=== PATIENT | male | born 1960 | race Caucasian/White ===

== ENCOUNTER 2024-12-16 13:48 | Inpatient (IN) | payer MEDICAID, SELFPAY ==
[2024-12-16] VITALS (9 sets, daily range): BP systolic 103–150; BP diastolic 53–78; PULSE 93–136; RESP 16–100; TEMP 37.9–39.3; O2SAT 97–100; BMI 25.7; BMI 25.6
--- NOTE | 2024-12-16 13:50 | PC.NURSE ---
BROUGHT IN BY AMBULANCE FROM [facility]. PT WAS OUTSIDE SMOKING AND STAFF FOUND PT IN WHEELCHAIR UNRESPONSIVE. STAFF MOVED DE TO GROUND AND PT WOKE UP. PT NORMALLY CONFUSED DUE TO DEMENTIA. UNABOOT WRAPS ON BOTH LOWER LEGS
--- NOTE | 2024-12-16 14:13 | EKG_ITS ---
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
--- NOTE | 2024-12-16 14:16 | XR_ITS ---
Examination: AP chest single view Technique one AP portable upright chest single view Date and time: December 16, 2024 1532 hours Comparison 04/02/2020 INDICATIONS: Sepsis protocol. FINDINGS: Fairly diffuse pneumonia in the left lung with left pleural disease Right lung clear Mild enlargement left ventricle Prominent osteopenia IMPRESSION: Significant left lung pneumonia
--- NOTE | 2024-12-16 14:22 | EDNOTE_ITS ---
ED Syncope RME/HPI General Chief Complaint: Syncope / Near Syncope Stated Complaint: POSSIBLE SYNCOPAL EPISODE Time Seen by Provider: 12/16/24 14:07 Arrival date/time: 12/16/24 13:48 RME / HPI RME / HPI narrative: 64-year-old male with a past medical history of diabetes, hypertension, seizures, hyperlipidemia, and dementia presents to the ED via EMS after he was [facility] at [facility] unconscious. custodial staff indicate he went out to have a cigarette in the patio. He had not been seen for a while and when staff went out to look for him he was found unresponsive and slumped over in his chair. They immediately moved him to the ground and he regained consciousness. He was sent here for further workup and evaluation. Related Data Home Medications ?Medication ?Instructions ?Recorded ?Confirmed aspirin 81 mg chewable tablet 81 mg PO QDAY ##0 05/03/20 carbamazepine 200 mg tablet 200 mg PO BID #0 tabs 06/1405/03/20 (Tegretol) divalproex 500 mg tablet,extended 1,000 mg PO QDAY #0 tabs 07/08/17 05/03/20 release 24 hr (Depakote ER) furosemide 20 mg tablet (Lasix) 20 mg PO QDAY #0 tabs 07/08/17 05/03/20 lisinopril 5 mg tablet 2.5 mg PO QDAY #0 tabs 07/0805/03/20 magnesium hydroxide 400 mg/5 mL 30 ml PO HSPRN PRN CON STIPATION #0 07/08/17 05/03/20 oral suspension (Milk of Magnesia) mL niacin 500 mg tablet 250 mg PO BID #0 tabs 05/03/20 simvastatin 20 mg tablet (Zocor) 40 mg PO HS #0 tabs 1 09/08/16 05/03/20 sitagliptin phosphate 50 mg tablet 50 mg PO QDAY #0 ta bs 07/08/17 05/03/20 (Januvia) bisacodyl 10 mg rectal suppository 10 mg NM QDAY PRN C onstipation 04/02/20 05/03/20 (Dulcolax (bisacodyl)) melatonin 3 mg capsule 3 mg PO HS 04/02/20 05/03/20 metformin 1,000 mg tablet 1,000 mg PO BID 04/02/20 (Glucophage) insulin glargine 100 unit/mL 45 unit subcut BID 05/03/20 subcutaneous cartridge multivitamin,[id number]-[id number]-Gy-[id number]-min 1 tab PO DAILY 05/03/20 05/03/20 Allergies Allergy/AdvReac Type Severity Reaction Status Date / Time bee venom protein (honey bee) Allergy Severe Hives Verified 12/16/24 14:01 Review of Systems Review of Systems Systems Reviewed: All systems reviewed, normal except as documented Past Medical History Past Medical History NEUROLOGIC: Positive Neurological Disorders and Traumatic Brain Injury CARDIAC: Positive Cardiac Disorders, Peripheral Vascular Disease and Hypertension; Negative Congestive Heart Failure RESPIRATORY: Negative Chronic Obstructive Pulmonary Disease (COPD) GASTROINTESTINAL: Negative Gastrointestinal Disorders GENITOURINARY: Negative Genitourinary Disorders or Renal Disease MUSCULOSKELETAL: Positive Musculoskeletal Disorders ENDOCRINE: Positive Endocrine Disorders and Diabetes Mellitus Type 2; Negative Diabetes Mellitus Type 1 PSYCHO/SOCIAL: Positive Recreational Drug Use, Bipolar Disorder and Anxiety Social History SMOKING STATUS: Current every day smoker ED Exam Narrative Physical exam: Alert 64-year-old male, no acute distress. Tachycardic and febrile at 102.7 degrees. Lungs are diminished at the bases with an active moist sounding cough. Bowel sounds are present, abdomen is soft and nontender. Contractures noted to his upper and lower extremities. Bilateral lower extremities wrapped in Unna boots/Coban. Right knee reveals erythema, warmth with multiple abrasions noted. Left knee without erythema or warmth noted. Course Course Course Narrative: 64-year-old male with a past medical history of diabetes, hypertension, seizures, hyperlipidemia, and dementia presents to the ED via EMS after he was found at his [facility] unconscious. custodial staff indicate he went out to have a cigarette in the patio. He had not been seen for a while and when staff went out to look for him he was found unresponsive and slumped over in his chair. They immediately moved him to the ground and he regained consciousness. He was sent here for further workup and evaluation. Alert 64-year-old male, no acute distress. Tachycardic and febrile at 102.7 degrees. Lungs are diminished at the bases with an active moist sounding cough. Bowel sounds are present, abdomen is soft and nontender. Contractures noted to his upper and lower extremities. Bilateral lower extremities wrapped in Unna boots/Coban. Right knee reveals erythema, warmth with multiple abrasions noted. Left knee without erythema or warmth noted. Vital signs reveal a blood pressure of 150/78, pulse 136, respirations 16 and nonlabored, temperature 102.7, O2 sat 97% on room air. Labs reveal an elevated white count of 18.0, minimally low H&H, normal platelets, elevated ANC of 15.7, lactic elevated at 3.5, LDH normal at 148, troponin is less than 0.020. Procalcitonin is elevated at 0.51 normal coags. Chemistry panel reveals normal sodium, chloride, potassium, CO2 and gap. BUN is elevated at 38, creatinine elevated at 1.7 EGFR 45. Glucose is elevated at 168. Phosphorus low at 1.2, normal magnesium of 2.0, LFTs are normal. Urinalysis reveals clear yellow urine with a specific gravity of 1.014, 3+ protein, 3+ glucose, negative ketones, 1+ blood, negative nitrites and leukocyte esterase, 11 RBCs, 3 WBCs and no bacteria. EKG reveals sinus tachycardia at 143 with normal QT and mild ST and T wave abnormalities. XR chest FINDINGS: Fairly diffuse pneumonia in the left lung with left pleural disease. Right lung clear. Mild enlargement left ventricle. Prominent osteopenia. IMPRESSION: Significant left lung pneumonia Quality Measures Current suspected stage: sepsis Possible source: pulmonary and skin/soft tissue Blood cultures ordered: yes Antibiotic ordered: Yes Pertinent labs: 12/16/24 14:15 Lactic Acid 3.5 H mMol/L (0.4-2.0) Procalcitonin 0.51 H ng/ml (0.0-0.49) sepsis Orders Category Date Time Status Snowboard Designer STAT Care 12/16/24 14:13 Completed Continuous Pulse Oximetry STAT Care 12/16/24 14:13 Completed EKG (ED ONLY) *Do not use* NOW Care 12/16/24 14:13 Completed In and Out Catheter X1PRN Care 12/16/24 14:13 Completed Insert IV NOW Care 12/16/24 14:13 Completed NPO STAT Care 12/16/24 14:13 Active Strict Intake and Output Routine Care 12/16/24 14:13 Ordered EKG (ED Only) Stat Exams 12/16/24 14:13 Draft XR chest 1V SEPSIS PROTOCOL Stat Exams 12/16/24 14:16 Completed Arterial Blood Gas Stat Lab 12/16/24 16:26 Completed B-Type Natriuretic Peptide Stat Lab 12/16/24 14:15 Completed Blood Culture (Lab) Stat Lab 12/16/24 14:33 Received CBC Stat Lab 12/16/24 14:15 Completed Comprehensive Metabolic Panel Stat Lab 12/16/24 14:15 Completed LDH (Lactate Dehydrogenase) Stat Lab 12/16/24 14:15 Completed Lactate (Lactic Acid) Stat Lab 12/16/24 14:15 Results Lipase Stat Lab 12/16/24 14:15 Completed Magnesium Stat Lab 12/16/24 14:15 Completed Partial Thromboplastin Time Stat Lab 12/16/24 14:15 Completed Phosphorous Stat Lab 12/16/24 14:15 Completed Procalcitonin Stat Lab 12/16/24 14:15 Completed Prothrombin Time with INR Stat Lab 12/16/24 14:15 Completed Troponin I Stat Lab 12/16/24 14:15 Completed Urinalysis Stat Lab 12/16/24 15:21 Completed Urine Culture Stat Lab 12/16/24 15:21 Received Acetaminophen Supp [Tylenol Supp] Med 12/16/24 14:13 Active 650 mg NM Q8HR PRN Piper/Tazo 3.375 gm Premix [Zosyn] Med 12/16/24 22:00 Active 3.375 gm in 50 ml IV Q8HR Piper/Tazo 3.375 gm Premix [Zosyn] Med 12/16/24 14:30 Discontinued 3.375 gm in 50 ml IV X1 Sodium Chloride 0.9% 1000 ml [Ns] 1,776 ml Med 12/16/24 14:13 Discontinued IV 1,776 mls/hr Vancomycin Pharmacy to Dose Med 12/16/24 14:20 Active 1 each IV QDAY PRN Vancomycin/Ns 1 gm Ivpb 200 ml Med 12/16/24 14:30 Discontinued IV X1 Oxygen Delivery NOW RT 12/16/24 14:13 Active Vital Signs Vital signs: Vital Signs Pulse Rate 136 H 12/16/24 13:50 Respiratory Rate 16 12/16/24 13:50 Blood Pressure 150/78 H 12/16/24 13:50 Pulse Oximetry (%) 97 12/16/24 13:50 Oxygen Delivery Method Room Air 12/16/24 13:50 Syncope MDM Narrative MDM Narrative:: 64-year-old male with a past medical history of diabetes, hypertension, seizures, hyperlipidemia, and dementia presents to the ED via EMS after he was [facility] at his [facility] unconscious. custodial staff indicate he went out to have a cigarette in the patio. He had not been seen for a while and when staff went out to look for him he was found unresponsive and slumped over in his chair. They immediately moved him to the ground and he regained consciousness. He was sent here for further workup and evaluation. Alert 64-year-old male, no acute distress. Tachycardic and febrile at 102.7 degrees. Lungs are diminished at the bases with an active moist sounding cough. Bowel sounds are present, abdomen is soft and nontender. Contractures noted to his upper and lower extremities. Bilateral lower extremities wrapped in Unna boots/Coban. Right knee reveals erythema, warmth with multiple abrasions noted. Left knee without erythema or warmth noted. Vital signs reveal a blood pressure of 150/78, pulse 136, respirations 16 and nonlabored, temperature 102.7, O2 sat 97% on room air. Labs reveal an elevated white count of 18.0, minimally low H&H, normal platelets, elevated ANC of 15.7, lactic elevated at 3.5, LDH normal at 148, troponin is less than 0.020. Procalcitonin is elevated at 0.51 normal coags. Chemistry panel reveals normal sodium, chloride, potassium, CO2 and gap. BUN is elevated at 38, creatinine elevated at 1.7 EGFR 45. Glucose is elevated at 168. Phosphorus low at 1.2, normal magnesium of 2.0, LFTs are normal. Urinalysis reveals clear yellow urine with a specific gravity of 1.014, 3+ protein, 3+ glucose, negative ketones, 1+ blood, negative nitrites and leukocyte esterase, 11 RBCs, 3 WBCs and no bacteria. EKG reveals sinus tachycardia at 143 with normal QT and mild ST and T wave abnormalities. XR chest FINDINGS: Fairly diffuse pneumonia in the left lung with left pleural disease. Right lung clear. Mild enlargement left ventricle. Prominent osteopenia. IMPRESSION: Significant left lung pneumonia Patient data External records reviewed:: EMS form and Intermediate records Clinical information provided by:: none Social determinants that could affect healthcare access:: none Patient has the following chronic illnesses:: Type 2 diabetes mellitus, TBI, peripheral vascular disease, hypertension, hyperlipidemia, bipolar disorder How is presenting disease/condition affected by chronic disease/condition?: uneffected by Evaluation data The following diagnostics were reviewed and interpreted by me:: lab results, radiology exam(s) and EKG tracing(s) Lab and/or radiology exams considered but not ordered:: N/A Interpretation Summary: Labs reveal an elevated white count of 18.0, minimally low H&H, normal platelets, elevated ANC of 15.7, lactic elevated at 3.5, LDH normal at 148, troponin is less than 0.020. Procalcitonin is elevated at 0.51 normal coags. Chemistry panel reveals normal sodium, chloride, potassium, CO2 and gap. BUN is elevated at 38, creatinine elevated at 1.7 EGFR 45. Glucose is elevated at 168. Phosphorus low at 1.2, normal magnesium of 2.0, LFTs are normal. Urinalysis reveals clear yellow urine with a specific gravity of 1.014, 3+ protein, 3+ glucose, negative ketones, 1+ blood, negative nitrites and leukocyte esterase, 11 RBCs, 3 WBCs and no bacteria. EKG reveals sinus tachycardia at 143 with normal QT and mild ST and T wave abnormalities. XR chest FINDINGS: Fairly diffuse pneumonia in the left lung with left pleural disease. Right lung clear. Mild enlargement left ventricle. Prominent osteopenia. IMPRESSION: Significant left lung pneumonia Medications / Prescriptions Medications or Prescriptions considered but not ordered:: N/A Medication administrations:: Medication Administration History Acetaminophen (Acetaminophen Supp 650 Mg Supp) 650 mg NM Q8HR PRN PRN Reason: Fever > 100.4 Stop: 01/15/25 14:12 Last Admin: 12/16/24 15:09 Dose: 650 mg Documented By: GM Piperacillin/Tazobactam/Dextrose (Zosyn) 3.375 gm in 50 mls @ 12.5 mls/hr IV Q8HR [facility]; Protocol Stop: 12/23/24 21:59 Pharmacy Consult (Vancomycin Pharmacy To Dose 1 Each Each) 1 each IV QDAY PRN PRN Reason: CONSULT Stop: 01/15/25 14:19 Discontinued Medications Sodium Chloride (Ns) 1,776 mls @ 1,776 mls/hr 30 ml/kg infuse over 60 min (1776 ml) IV .Q1H ONE Stop: 12/16/24 15:12 Last Infusion: 12/16/24 16:20 Dose: Infused Documented By: Admin: 12/16/24 15:04 Dose: 1,776 mls/hr Documented By: GM Piperacillin/Tazobactam/Dextrose (Zosyn) 3.375 gm in 50 mls @ 100 mls/hr IV X1 ONE Stop: 12/16/24 14:59 Last Infusion: 12/16/24 15:40 Dose: Infused Documented By: Admin: 12/16/24 15:09 Dose: 100 mls/hr Documented By: GM Vancomycin/Sodium Chloride (Vancomycin/Ns 1 Gm Ivpb) 200 mls @ 120 mls/hr IV X1 ONE Stop: 12/16/24 16:09 Last Admin: 12/16/24 16:16 Dose: 120 mls/hr Documented By: ALONDRA Acetaminophen 650MG NM, Zosyn 3.375 g IV, vancomycin 1 g, sodium chloride 1776 mL (sepsis fluids) Consultations Consultation(s) initiated? (list below): Yes Consultation #1 (Physician, Specialty, Details): Dr. Cantu, Resident accepts for admission. Diagnosis Syncope Differential Diagnosis: syncope due to orthostatic hypotension, vasovagal syncope, complete atrioventricular block, dehydration and other (Sepsis,) Most likely diagnosis given after review of the tests above:: Sepsis secondary to Left sided Pneumonia and Right knee cellulitis. Admission Indicated Admission indicated?: indicated Explain why admission is indicated or not indicated:: Sepsis Admission Request Was there a request for admission?: Yes Admission Attestation Admission request attestation: Discussed case with Dr. Cantu from Hospitalist service regarding admission. Discussed patients ED course, exam findings, labs, and radiology results. The Hospitalist agrees to accept the patient for admission. Disposition Plan Disposition Plan: Admit Discharge Plan Plan Patient Disposition: Admit Acute Care w/in Hospital Discharge Disposition comment: Stable Prescriptions/Referrals Prescriptions/Med Rec: No Action carbamazepine [Tegretol] 200 MG tablet 200 mg PO BID Qty: 0 magnesium hydroxide [Milk of Magnesia] 30 ML/CUP suspension 30 ml PO HSPRN PRN (Reason: CONSTIPATION) Qty: 0 simvastatin [Zocor] 20 MG tablet 40 mg PO HS Qty: 0 divalproex [Depakote ER] 500 MG tablet extended release 24 hr 1,000 mg PO QDAY Qty: 0 niacin 500 MG tablet 250 mg PO BID Qty: 0 aspirin 81 MG tablet,chewable 81 mg PO QDAY Qty: 0 lisinopril 5 MG tablet 2.5 mg PO QDAY Qty: 0 furosemide [Lasix] 20 MG tablet 20 mg PO QDAY Qty: 0 Januvia 50 MG tablet 50 mg PO QDAY Qty: 0 Multivitamin And Mineral Tablet 1 tab PO DAILY Lantus U-100 Insulin 100 unit/mL Cartridge 45 unit SUBCUT BID bisacodyl [Dulcolax (bisacodyl)] 10 mg Suppository 10 mg NM QDAY PRN (Reason: Constipation) metformin [Glucophage] 1,000 mg Tablet 1,000 mg PO BID melatonin 3 mg Capsule 3 mg PO HS Referrals: Arian([facility])Eloy MD [Primary Care Provider] - In 1 week Problem List Clinical Impression: Sepsis, Cellulitis, Pneumonia, Syncope and collapse Patient/Caregiver Discharge Instructions Print Language: Maori Stand Alone Forms: Nelli Award Info., Patient Portal Info Letter PA/BANQUET LEAD Supervising Physician PA/BANQUET LEAD Supervising Physician: Dr. Singleton
[2024-12-16 14:38] LABS: Lactate (Lactic Acid) 3.5 mMol/L (0.4-2.0)
[2024-12-16 14:39] LABS: Basophils % (Auto) 0 % (0-2.5); Eosinophils % (Auto) 0 % (0-10); Hematocrit 36.4 % (41.0-53.0); Hemoglobin 12.6 g/dL (13.5-16.0); Immature Granulocytes % (Auto) 0 % (0-0); Immature Granulocytes Auto 0.08 Thou/mm3 (0.00-0.00); Lymphocytes # (Auto) 0.7 Thou/mm3 (1.0-4.8); Lymphocytes % (Auto) 4 % (10-50); Mean Corpuscular HGB Conc 34.6 g/dl (31.0-37.0); Mean Corpuscular Hemoglobin 31.4 pg (25.0-35.0); Mean Corpuscular Volume 91 fL (80-100); Monocytes # (Auto) 1.5 Thou/mm3 (0.0-0.8); Monocytes % (Auto) 8 % (0-12); Neutrophils # (Auto) 15.7 Thou/mm3 (1.8-7.7); Neutrophils % (Auto) 87 % (37-80); Nucleated Red Blood Cell % 0 /100 WBC (0); Platelet Count 270 Thou/mm3 (140-440); RDW Standard Deviation 45.5 fL (35.1-43.9); Red Blood Count 4.01 Miln/mm3 (4.50-5.90)
[2024-12-16 15:04] LABS: Alanine Aminotransferase 13 U/L (10-49); Albumin, Serum 4.1 gm/dL (3.4-4.8); Albumin/Globulin Ratio 1.1 (1.2-2.2); Alkaline Phosphatase 62 U/L (46-116); Anion Gap 12 (7-16); Aspartate Amino Transferase 15 U/L (0-34); BUN/Creatinine Ratio 22 Ratio (12-20); Bilirubin,Total 0.2 mg/dL (0.3-1.2); Blood Urea Nitrogen 38 mg/dL (9-23); Calcium 8.9 mg/dL (8.3-10.6); Calcium (Corrected) 8.9 mg/dL (8.5-10.1); Carbon Dioxide 26.4 mMol/L (20.0-31.0); Chloride 103 mMol/L (98-107); Creatinine (Component) 1.7 mg/dL (0.6-1.3); Estimated Creatinine Clearance 37.2 mL/min (>60); Globulin 3.7 gm/dL (2.3-3.5); Glucose 168 mg/dL (74-106); LDH (Lactate Dehydrogenase) 148 U/L (120-246); Lipase 78 U/L (12-53); Osmolality,Calculated 294 (275-295); Phosphorous 1.2 mg/dL (2.4-5.1); Potassium 4.8 mMol/L (3.4-5.1); Procalcitonin 0.51 ng/ml (0.0-0.49); Sodium 141 mMol/L (136-145); Total Protein 7.8 gm/dL (5.7-8.2); Troponin I < 0.020 ng/mL (0.0-0.045); eGFR 45 See Note
[2024-12-16] MEDS: SODIUM CHLORIDE 0.9% 1000 ML 1,776 ML 1776 ML IV (15:04)
[2024-12-16] MEDS: PIPER/TAZO 3.375 GM PREMIX 3.375 GM/50 ML BAG IV ×2 (15:09→21:44)
[2024-12-16] MEDS: ACETAMINOPHEN SUPP 650 MG SUPP PR (15:09)
[2024-12-16 15:11] LABS: B-Type Natriuretic Peptide 66 pg/mL (0-100)
--- NOTE | 2024-12-16 15:15 | PC.NURSE ---
PT VOIDED SELF; PT GIVEN PERINEAL CARE WITH WARM BATH CLOTHS AND PLACED IN NEW CLEAN BRIEFS AT THIS TIME.
[2024-12-16 15:22] LABS: INR 0.9 (0.9-1.3); Prothrombin Time 10.2 Seconds (9.0-12.2)
[2024-12-16 15:40] LABS: Collection Type, Urine Clean Catch; Squamous Epithelial Cell,Urine 0 /hpf (0-5)
[2024-12-16 15:47] LABS: Bilirubin,Urine Negative (Negative); Blood,Urine 1+ (Negative); Clarity,Urine Clear (Clear/Hazy); Color,Urine Yellow (Lt Yel-Yel); Glucose, Urine 3+ (Negative); Hyaline Casts,Urine < 1 /hpf (0-1); Ketones,Urine Negative (Negative); Leukocyte Esterase,Urine Negative (Negative); Nitrite,Urine Negative (Negative); Protein,Urine 3+ (Neg - Trace); RBC,Urine 11 /hpf (0-3); Specific Gravity,Urine 1.014 (1.001-1.035); Urobilinogen,Urine Negative mg/dL (0.0-1.0); WBC,Urine 3 /hpf (0-5)
--- NOTE | 2024-12-16 16:07 | PC.CC ---
Patient is a 64 year-old male who presents to the hospital for syncopal episode. ASW, Chante made face to face contact with patient introduced self, role, and reason for visit. Patient presents as alert and oriented to self only. Patient confirmed his sisters name on demographics. ASW attempted to make telephone contact with sister, Timi Hdez to complete initial assessment but she did not answer. ASW made telephone contact with Kate at [facility] to complete assessment. Kate reports patient ambulates with a wheelchair and is moderate assist with ADLs. Patient does not require oxygen and is not a dialysis patient. Patient receives primary care with Eloy Rodriguez and prescription medication is provided at the SNF. Upon discharge patient will be returning back to [facility]. medical services assistant to follow up with any discharge needs.
[2024-12-16] MEDS: VANCOMYCIN/NS 1 GM IVPB 200 ML IV (16:16)
[2024-12-16 16:30] LABS: Base Excess -2 (-3-3); HCO3 22 mEq/L (20-26); Inspired Oxygen, FIO2 21 %; O2 Saturation 98 % (91-98); PCO2 35 mmHg (32.0-48.0); PO2 82 mmHg (83-108); pH, Arterial 7.41 (7.35-7.45)
[2024-12-16 16:33] LABS: Allen Test Not Performed; Puncture Site Arterial Line
[2024-12-16 17:33] LABS: Reflex Lactate? Y
--- NOTE | 2024-12-16 17:54 | ESHP_ITS ---
<Statement entered by Alyx Garcia MD - 12/17/24 13:37> I agree with plan and examination findings on this note , I have personally seen and examined patient. Labs and imaging reviewed. Alyx Garcia PGY3 Documentation for date of: 12/16/24 HPI History of Present Illness History of present illness: Due to patient's history of traumatic brain injury patient is unable to give full history. Although patient is alert and only knows his full name does not know any other information about himself. Patient is not somnolent nor disoriented Mr. Vasquez is 64-year-old male with past medical history significant for hypertension, type 2 diabetes, hyperlipidemia and history of traumatic brain injury presented to the ED by ambulance from [facility] after being found somnolent and unconscious in his wheelchair as per chart reviewing. Patient had then regained consciousness and was alert at his baseline upon arrival to the ED. Patient denies any chest pain palpitations dizziness or shortness of breath patient also denies any abdominal pain, melena, hematochezia or hematemesis. Patient also denies any dysuria or urinary urgency. Pt states he has had a cough for couple days but cannot confirm if he had a fever, pt denies any night sweats or chills. ED course In the ED initial vitals were 150/78, pulse was 136, temperature 102.7, patient was COVID, influenza A and B negative. Patient was saturating on room air does not require any supplemental oxygen Labs were significant for WBC 18.0, hemoglobin 12.6, hematocrit 36.4, BUN 38, creatinine 1.7, GFR 45, glucose 168, phosphorus 1.2 Lactic dehydrogenase 148, lipase 78, Pro-Donta could 0.51 Lactic acid 3.5 --> 2.0 Urinalysis not significant EKG showed sinus tachycardia with heart rate of 143 , QTc 390 Chest x-ray show significant left lung pneumonia Review of Systems Review of Systems Systems Reviewed: All systems reviewed, normal except as documented Exam Vital Signs Temp Pulse Resp BP Pulse Ox O2 Del Method 101.2 F H 119 H 17 108/53 L 100 Room Air 12/16/24 16:23 12/16/24 16:21 12/16/24 16:21 12/16/24 16:21 12/16/24 16:21 12/16/24 16:21 Narrative Exam GENERAL: Pt is alert and only knows his name due to hx of traumatic brain injury . pleasant, cooperative, saturating on room air, Not in acute distress NEURO: no focal neurological deficits noted HEENT: Atraumatic, Normocephalic. mucous membranes moist. Eyes open, symmetrical, & clear HEART: Normal Heart Sounds LUNGS: Clear to auscultation with no wheezing or crackles. ABDOMEN: soft, non-distended, non-tender, bowel sounds heard, no guarding or rebound tenderness SKIN: bilateral erythematous skin with some abrasions noted around the knees, pt's legs are wrap in compression bandages EXTREMITIES: No edema, tenderness, able to move all 4 extremities, pedal pulses palpated Results: Labs 12/17/24 05:09 12/17/24 05:09 Labs: Short CBC 12/16/24 Range/Units 14:15 WBC 18.0 H (3.8-10.6) Thou/mm3 Hgb 12.6 L (13.5-16.0) g/dL Hct 36.4 L (41.0-53.0) % Plt Count 270 (140-440) Thou/mm3 BMP 12/16/24 14:15 Sodium 141 Potassium 4.8 Chloride 103 Carbon Dioxide 26.4 BUN 38 H Creatinine 1.7 H Glucose 168 H Calcium 8.9 Cardiac Enzymes 12/16/24 Range/Units 14:15 Troponin I < 0.020 (0.0-0.045) ng/mL Liver Function 12/16/24 Range/Units 14:15 Total Bilirubin 0.2 L (0.3-1.2) mg/dL AST 15 (0-34) U/L ALT 13 (10-49) U/L Alkaline Phosphatase 62 (46-116) U/L Albumin 4.1 (3.4-4.8) gm/dL Urine 12/16/24 Range/Units 15:21 Urine Color Yellow (Lt Yel-Yel) Urine Clarity Clear (Clear/Hazy) Urine pH 6.0 (5.0-7.0) Ur Specific Early 1.014 (1.001-1.035) Urine Protein 3+ A (Neg - Trace) Urine Glucose (UA) 3+ A (Negative) ABG Interpretation ABG results: 12/16/24 16:26 ABG pH 7.41 ABG pCO2 35 ABG pO2 82 L ABG HCO3 22 ABG O2 Saturation 98 ABG Base Excess -2 Quality Measures Quality Measures sepsis Current suspected stage: sepsis Possible source: pulmonary and skin/soft tissue Blood cultures ordered: yes Antibiotic ordered: Yes Medications Home Medications and Allergies Home Medications ?Medication ?Instructions ?Recorded ?Confirmed ?Type aspirin 81 mg chewable tablet 81 mg PO QDAY ##0 12/17/24 History carbamazepine 200 mg tablet 200 mg PO BID #0 tabs 06/1412/17/24 History (Tegretol) divalproex 500 mg tablet,extended 1,000 mg PO QDAY #0 tabs 07/08/17 12/17/24 History release 24 hr (Depakote ER) furosemide 20 mg tablet (Lasix) 20 mg PO QDAY #0 tabs 07/08/17 12/17/24 History lisinopril 5 mg tablet 2.5 mg PO QDAY #0 tabs 07/0812/17/24 History magnesium hydroxide 400 mg/5 mL 30 ml PO HSPRN PRN CON STIPATION #0 07/08/17 12/17/24 History oral suspension (Milk of Magnesia) mL niacin 500 mg tablet 250 mg PO BID #0 tabs 12/17/24 History bisacodyl 10 mg rectal suppository 10 mg FL QDAY PRN C onstipation 04/02/20 12/17/24 History (Dulcolax (bisacodyl)) melatonin 3 mg capsule 3 mg PO HS 04/02/20 12/17/24 History metformin 1,000 mg tablet 1,000 mg PO BID 04/02/2001/05 History (Glucophage) insulin glargine 100 unit/mL 45 unit subcut BID 12/17/24 History subcutaneous cartridge multivitamin,ht-biid-Zu-FA-min 1 tab PO DAILY 05/03/20 12/17/24 History acetaminophen 325 mg capsule 325 mg PO Q6H PRN fever o r pain 12/17/24 12/17/24 History epinephrine 0.3 mg/0.3 mL 0.3 ml subcut Q12HR PRN 06/01/0512/17/24 History injection, auto-injector hypersensitivity reaction ferrous sulfate 325 mg (65 mg 325 mg PO QDAY 12/17/24 12/17/24 History iron) tablet glimepiride 1 mg tablet 1 mg PO QDAY 12/17/24 History glucagon 1 mg solution for See Rx Instructions .Route .COMPLEX 12/17/24 12/17/24 History injection (Glucagon Emergency Kit) rosuvastatin 20 mg tablet 20 mg PO ONCE HS 12/17/24 History Allergies Allergy/AdvReac Type Severity Reaction Status Date / Time bee venom protein (honey bee) Allergy Severe Hives Verified 12/16/24 14:01 Visit Medications Acetaminophen (Acetaminophen Supp 650 Mg Supp) 650 mg FL Q8HR PRN; Protocol PRN Reason: Fever > 100.4 Stop: 01/15/25 14:12 Last Admin: 12/16/24 15:09 Dose: 650 mg Acetaminophen (Acetaminophen 325 Mg Tablet) 650 mg PO Q6H PRN PRN Reason: Fever >101.5 Stop: 01/15/25 17:27 Carbamazepine (Carbamazepine 200 Mg Tablet) 200 mg PO BID BRAYAN Stop: 01/15/25 20:59 Dextrose (Dextrose 50%-Water Inj 50 Ml Syringe) 25 ml IV Q15MIN PRN PRN Reason: BG 50-70 responsive npo pt Stop: 01/15/25 17:39 Dextrose (Dextrose 50%-Water Inj 50 Ml Syringe) 50 ml IV Q15MIN PRN PRN Reason: BG <50 OR BG <70 & pt unresponsive Stop: 01/15/25 17:39 Divalproex Sodium (Divalproex Sod Dr 500 Mg Tablet.Dr) 500 mg PO BID BRAYAN Stop: 01/15/25 20:59 Glucagon (Glucagon Inj 1 Mg Vial) 1 mg IM Q15MIN PRN PRN Reason: BG <70, and no IV access Heparin Sodium (Porcine) (Heparin Sod Inj 5000 Unit/Ml Vial) 5,000 unit SC Q8HR BRAYAN Stop: 12/30/24 21:59 Piperacillin/Tazobactam/Dextrose (Zosyn) 3.375 gm in 50 mls @ 12.5 mls/hr IV Q8HR BRAYAN; Protocol Stop: 12/23/24 21:59 Sodium Chloride (Ns) 1,000 mls @ 75 mls/hr IV .[id number] [facility] Stop: 01/15/25 17:29 Doxycycline Hyclate 100 mg/ (Sodium Chloride) 100 mls @ 100 mls/hr IV BID [facility] Stop: 12/23/24 20:59 Ceftriaxone Sodium/Dextrose (Rocephin/D5w 1gm Iv Premix) 1 gm in 50 mls @ 100 mls/hr IV QDAY BRAYAN Stop: 12/23/24 17:37 Insulin Human Lispro (Insulin Lispro (Admelog) 1 Unit/0.01 Ml Unit) 0 unit SC AC BRAYAN; Protocol Stop: 01/16/25 07:29 Pharmacy Consult (Vancomycin Pharmacy To Dose 1 Each Each) 1 each IV QDAY PRN PRN Reason: CONSULT Stop: 01/15/25 14:19 Sennosides (Senna Tablet) 1 tab PO QDAY BRAYAN; Protocol Stop: 01/16/25 08:59 Discontinued Medications Sodium Chloride (Ns) 1,776 mls @ 1,776 mls/hr 30 ml/kg infuse over 60 min (1776 ml) IV .Q1H ONE Stop: 12/16/24 15:12 Last Infusion: 12/16/24 16:20 Dose: Infused Piperacillin/Tazobactam/Dextrose (Zosyn) 3.375 gm in 50 mls @ 100 mls/hr IV X1 ONE Stop: 12/16/24 14:59 Last Infusion: 12/16/24 15:40 Dose: Infused Vancomycin/Sodium Chloride (Vancomycin/Ns 1 Gm Ivpb) 200 mls @ 120 mls/hr IV X1 ONE Stop: 12/16/24 16:09 Last Admin: 12/16/24 16:16 Dose: 120 mls/hr Assessment & Plan Plan Mr. Vasquez is 64-year-old male with past medical history significant for hypertension, type 2 diabetes, hyperlipidemia and history of traumatic brain injury presented to the ED by ambulance from [facility] after being found somnolent and unconscious in his wheelchair as per chart reviewing. Pt is admitted to the hospital for management of sepsis secondary to CAP and GLENNA. #Sepsis secondary to #Community-acquired pneumonia - Patient complaining of a cough for couple days but denies any fever or chills - In the ED patient met 3/4 SIRS with endorgan damage of acute kidney injury, tachycardia, fever and leukocytosis (WBC 18.0) -Chest x-ray show significant left lung pneumonia -Pro-Donta could 0.51, Lactic acid 3.5 --> 2.0 In the ED patient received 1.8 L of fluids, Zosyn and vancomycin x 1 Plan: - Maintenance fluids ordered - Blood cultures and urine cultures pending - Started Rocephin and doxycycline 12/16- -supplemental oxygen ordered if patient becomes hypoxic - Tylenol as needed for fever #Acute kidney injury - Patient's baseline creatinine is 1.0 and GFR above 60 - Creatinine on admission is 1.7, GFR 45 - Patient received 1.8 liters of fluid we will continue maintenance fluids - Monitor daily CMP - Avoid nephrotoxic and renally dose medication #Insulin-dependent type 2 diabetes - A1c ordered for a.m. labs - Insulin sliding scale ordered - Accu-Cheks ACHS - Hypoglycemia protocol ordered #Primary hypertension #Hyperlipidemia - On admission patient's initial blood pressure was 150/78 and without any medications patient's blood pressure remained stable at 120/75 - Will continue to monitor blood pressure and withhold any hypertensive medications in the setting of sepsis for now - Pending med rec's #History of seizure disorder - Resumed patient's home carbamazepine and Divalproex Health Maintenance Disposition: Med-tele for sepsis 2/2 CAP DVT Prophylaxis: Heparin 5000 units SC Q8 hrs GI Prophylaxis: not indicated Diet: carbohydrate consistent low Lines: Peripheral lines Code status: Full Assessment and plan discussed with my senior resident Dr. Garcia & attending physician Dr. Joanna Cuellar (PGY-1)- Internal medicine resident Attending Provider Attestation/Addendum I attest that I was physically present for the evaluation, physical examination, lab and imaging review of the patient with the residents. I discussed the case with the residents and agree with the findings and plans of care as documented above. Patient is a 64 years old male with past medical history of hypertension, type 2 diabetes mellitus, hyperlipidemia, traumatic brain injury who presented [facility] the ED from [facility] after being found somnolent and unconscious in his wheelchair. In the ED, his temperature was 102.7, blood pressure 150/78, pulse 136. Lab results were significant for WBC of 18, hemoglobin 12.6, BUN/creatinine 38/1.7, phosphorus 1.2, procalcitonin 0.51. Initial lactic acid was 3.5. EKG was obtained, which showed sinus tachycardia and chest x-ray shows left lung pneumonia. On exam, patient is alert and pleasant, cannot provide history. Saturating well on room air, clear lung sounds. Also noted to have bilateral erythematous skin with stasis, compression appendages bilaterally. After examination of the patient and review of the clinical data I feel that this patient needs admission to the hospital for further treatment/evaluation of sepsis secondary to community-acquired pneumonia, acute kidney injury. Will start him on IV Rocephin and doxycycline. He received fluid bolus in the ED, will continue with maintenance needs hydration. Cultures have been obtained. We will monitor his kidney function closely. Started on insulin regimen for diabetes. We will continue his seizure medication. Zara Marshall MD
[2024-12-16] MEDS: cefTRIAXone/D5w 1gm IV premix 1 GM/50 ML BAG IV (18:17)
--- NOTE | 2024-12-16 18:41 | PC.NURSE ---
CALLED [facility]GI WALKER FOR SBAR REPORT; PER ANGI WALKER, I'M IN A PT'S ROOM RIGHT NOW; I CAN'T TAKE REPORT. I WILL CALL YOU BACK.
[2024-12-16] MEDS: DOXYCYCLINE INJ 100 MG in SODIUM CHLORIDE 0.9% (POP) 100 ML IV (20:13)
[2024-12-16] MEDS: SODIUM CHLORIDE 0.9% 1000 ML 1,000 ML 75 ML IV (20:15)
[2024-12-16] MEDS: DIVALPROEX SOD DR 500 MG TABLET.DR PO (20:22)
[2024-12-16] MEDS: NAPH,KPH MBDB 1 PACKET (1.5 GM) 2 PACKET PO (20:22)
[2024-12-16] MEDS: carBAMazepine 200 MG TABLET PO (20:41)
[2024-12-16] MEDS: HEPARIN SOD INJ 5000 UNIT/ML VIAL SC (21:43)
[2024-12-17] VITALS (9 sets, daily range): BP systolic 100–113; BP diastolic 55–78; PULSE 73–100; RESP 17–98; TEMP 36.1–36.7; O2SAT 92–98
[2024-12-17] MEDS: PIPER/TAZO 3.375 GM PREMIX 3.375 GM/50 ML BAG IV ×3 (05:32→23:12)
[2024-12-17] MEDS: HEPARIN SOD INJ 5000 UNIT/ML VIAL SC ×3 (05:33→21:55)
[2024-12-17 05:57] LABS: Basophils % (Auto) 0 % (0-2.5); Eosinophils % (Auto) 0 % (0-10); Hematocrit 30.2 % (41.0-53.0); Immature Granulocytes % (Auto) 0 % (0-0); Immature Granulocytes Auto 0.04 Thou/mm3 (0.00-0.00); Lymphocytes # (Auto) 1.4 Thou/mm3 (1.0-4.8); Lymphocytes % (Auto) 11 % (10-50); Mean Corpuscular HGB Conc 33.1 g/dl (31.0-37.0); Mean Corpuscular Hemoglobin 32.1 pg (25.0-35.0); Mean Corpuscular Volume 97 fL (80-100); Monocytes # (Auto) 1.1 Thou/mm3 (0.0-0.8); Monocytes % (Auto) 8 % (0-12); Neutrophils # (Auto) 10.5 Thou/mm3 (1.8-7.7); Neutrophils % (Auto) 81 % (37-80); Nucleated Red Blood Cell % 0 /100 WBC (0); Platelet Count 192 Thou/mm3 (140-440); RDW Standard Deviation 48.9 fL (35.1-43.9); Red Blood Count 3.12 Miln/mm3 (4.50-5.90); White Blood Count 13.1 Thou/mm3 (3.8-10.6)
[2024-12-17 06:02] LABS: Glucose Estimated Average 146 mg/dL (80-131); Hemoglobin A1C 6.7 % Hgb (4.8-6.0)
[2024-12-17 06:24] LABS: Alanine Aminotransferase 9 U/L (10-49); Alkaline Phosphatase 44 U/L (46-116); Anion Gap 11 (7-16); Aspartate Amino Transferase 12 U/L (0-34); BUN/Creatinine Ratio 21 Ratio (12-20); Bilirubin,Total 0.2 mg/dL (0.3-1.2); Blood Urea Nitrogen 33 mg/dL (9-23); Calcium 7.5 mg/dL (8.3-10.6); Calcium (Corrected) 8.3 mg/dL (8.5-10.1); Carbon Dioxide 21.5 mMol/L (20.0-31.0); Cardiac Risk Estimate 4.5 RATIO (4.0-6.7); Chloride 112 mMol/L (98-107); Cholesterol 147 mg/dL (132-200); Creatinine (Component) 1.6 mg/dL (0.6-1.3); Estimated Creatinine Clearance 39.6 mL/min (>60); Globulin 2.9 gm/dL (2.3-3.5); Glucose 107 mg/dL (74-106); HDL Cholesterol 33 mg/dL (40-60); LDL Cholesterol,Calculated 45 mg/dL (0-130); Magnesium 1.8 mg/dL (1.6-2.6); Osmolality,Calculated 294 (275-295); Phosphorous 2.6 mg/dL (2.4-5.1); Potassium 4.1 mMol/L (3.4-5.1); Sodium 144 mMol/L (136-145); Thyroid Stimulating Hormone 0.55 uIU/mL (0.55-4.78); Total Protein 5.9 gm/dL (5.7-8.2); Triglycerides 347 mg/dL (30-150); eGFR 48 See Note
[2024-12-17] MEDS: SODIUM CHLORIDE 0.9% 1000 ML 1,000 ML 75 ML IV (07:43)
[2024-12-17] MEDS: cefTRIAXone/D5w 1gm IV premix 1 GM/50 ML BAG IV (09:16)
[2024-12-17] MEDS: carBAMazepine 200 MG TABLET PO ×2 (09:17→21:57)
[2024-12-17] MEDS: SENNA TABLET 1 TAB PO (09:17)
[2024-12-17] MEDS: DIVALPROEX SOD DR 500 MG TABLET.DR PO ×2 (09:17→21:57)
[2024-12-17] MEDS: DOXYCYCLINE INJ 100 MG in SODIUM CHLORIDE 0.9% (POP) 100 ML IV ×2 (09:21→21:56)
[2024-12-17] MEDS: VANCOMYCIN/NS 1 GM IVPB 200 ML IV (10:03)
--- NOTE | 2024-12-17 10:27 | XR_ITS ---
Examination: CT chest, without intravenous contrast. Sagittal and coronal 2-D reconstructions. Exam date and time: December 17, 2024 1347 hours INDICATIONS: Chest pain syncopal episodes today CTDI:vol (mGy) 10 DLP: (mGycm) 358 Technique: Multiple 3.0 mm axial sections of the chest to been obtained. Bone and lung density settings are obtained. Sagittal and coronal 2-D reconstructions have been obtained. Low dose protocols were performed. One or more of the following dose reduction techniques were used; automated exposure control, adjustment of the mA and/or KV according to patient size, use of iterative reconstruction technique. Findings: No thoracic aortic aneurysmal dilatation Pulmonary artery segments are not enlarged. Mild calcification left anterior descending coronary artery. No paratracheal tracheobronchial or bronchopulmonary adenopathy 9 mm pulmonary nodule is irregular margins right middle lobe Pneumonia left base with minimal left pleural fluid No visualized liver or splenic lesion Pancreas partially visualized does not appear enlarged Upper pole left renal cyst 37 mm Moderate thoracic spondylosis IMPRESSION: Pneumonia left base with minimal left pleural fluid 9 mm pulmonary nodule irregular margins right middle lobe, recommend 3 month follow-up CT chest without contrast
--- NOTE | 2024-12-17 10:54 | PC.SS ---
Follow up note: Pt is from [facility] and will return upon dc. Pt is on IV antibiotic. PT consulting.
[2024-12-17] MEDS: INSULIN LISPRO (AdmeLOG) 1 UNIT/0.01 ML UNIT SC ×2 (11:48→17:47)
--- NOTE | 2024-12-17 13:40 | PC.NURSE ---
Patient to CT in w/c, stable condition.
--- NOTE | 2024-12-17 13:44 | PD.RESPRO ---
Documentation for date of: 12/17/24 Subjective Subjective Interval history: No acute overnight events reported. Patient seen and examined at bedside this morning. Patient reports significant improvement of his symptoms he has remained afebrile through the night and denies any shortness of breath or cough with sputum production. Patient is able to tolerate oral diet. Vitals are stable, WBC is downtrending to 13.1 hemoglobin is 10.0, hematocrit 30.2 patient denies any abdominal pain. Creatinine is downtrending to 1.6, GFR 48, triglycerides are 347 therefore will change patient's diet to low-fat. Patient has no other complaints we will continue IV antibiotics for pneumonia. Exam Vital Signs Temp Pulse Resp BP Pulse Ox O2 Del Method 97.5 F 87 18 108/56 L 97 Room Air 12/17/24 12:00 12/17/24 12:00 12/17/24 12:12/17/24 12:00 12/17/24 12:12/17/24 12:00 Narrative Exam GENERAL: Pt is alert and only knows his name due to hx of traumatic brain injury . pleasant, cooperative, saturating on room air, Not in acute distress NEURO: no focal neurological deficits noted HEENT: Atraumatic, Normocephalic. mucous membranes moist. Eyes open, symmetrical, & clear HEART: Normal Heart Sounds LUNGS: Clear to auscultation with no wheezing or crackles. ABDOMEN: soft, non-distended, non-tender, bowel sounds heard, no guarding or rebound tenderness SKIN: bilateral erythematous skin with some abrasions noted around the knees, pt's legs are wrap in compression bandages EXTREMITIES: No edema, tenderness, able to move all 4 extremities, pedal pulses palpated Objective Labs 12/18/24 05:00 12/18/24 05:00 Labs: Laboratory Results - last 24 hr 12/16/24 12/16/24 12/16/24 14:15 15:21 16:26 WBC 18.0 H RBC 4.01 L Hgb 12.6 L Hct 36.4 L MCV 91 MCH 31.4 MCHC 34.6 RDW Std Deviation 45.5 H Plt Count 270 Neut % (Auto) 87 H Lymph % (Auto) 4 L [place] % (Auto) 8 Eos % (Auto) 0 Baso % (Auto) 0 Neut # (Auto) 15.7 H Lymph # (Auto) 0.7 L [place] # (Auto) 1.5 H Eos # (Auto) 0.0 Baso # (Auto) 0.0 Immature Gran # (Auto) 0.08 H Absolute Nucleated RBC 0.00 Immature Gran % 0 Nucleated RBC % 0 PT 10.2 INR 0.9 APTT 26.0 Puncture Site Arterial Line ABG pH 7.41 ABG pCO2 35 ABG pO2 82 L ABG HCO3 22 ABG O2 Saturation 98 ABG Base Excess -2 FiO2 21 Sodium 141 Potassium 4.8 Chloride 103 Carbon Dioxide 26.4 Anion Gap 12 BUN 38 H Creatinine 1.7 H Estim Creat Clear Calc 37.2 L eGFR 45 L BUN/Creatinine Ratio 22 H Glucose [address] Glu mg/dL Hemoglobin A1c Calculated Osmolality 294 Lactic Acid 3.5 H Calcium 8.9 Corrected Calcium 8.9 Phosphorus 1.2 L Magnesium 2.0 Total Bilirubin 0.2 L AST 15 ALT 13 Alkaline Phosphatase 62 Lactate Dehydrogenase 148 Troponin I < 0.020 B-Natriuretic Peptide 66 Total Protein 7.8 Albumin 4.1 Globulin 3.7 H Albumin/Globulin Ratio 1.1 L Triglycerides Cholesterol LDL Cholesterol, Calc HDL Cholesterol Cholesterol/HDL Ratio Lipase 78 H Procalcitonin 0.51 H TSH Ur Collection Type Clean Catch Urine Color Yellow Urine Clarity Clear Urine pH 6.0 Ur Specific [place] 1.014 Urine Protein 3+ A Urine Glucose (UA) 3+ A Urine Ketones Negative Urine Blood 1+ A Urine Nitrite Negative Urine Bilirubin Negative Urine Urobilinogen (Auto) Negative Ur Leukocyte Esterase Negative Urine RBC 11 H Urine WBC 3 Ur Squamous Epith Cells 0 Urine Bacteria None Hyaline Casts < 1 12/16/24 12/17/24 17:45 05:09 WBC 13.1 H RBC 3.12 L Hgb 10.0 L D Hct 30.2 L MCV 97 MCH 32.1 MCHC 33.1 RDW Std Deviation 48.9 H Plt Count 192 D Neut % (Auto) 81 H Lymph % (Auto) 11 [place] % (Auto) 8 Eos % (Auto) 0 Baso % (Auto) 0 Neut # (Auto) 10.5 H Lymph # (Auto) 1.4 [place] # (Auto) 1.1 H Eos # (Auto) 0.0 Baso # (Auto) 0.0 Immature Gran # (Auto) 0.04 H Absolute Nucleated RBC 0.00 Immature Gran % 0 Nucleated RBC % 0 PT INR APTT Puncture Site ABG pH ABG pCO2 ABG pO2 ABG HCO3 ABG O2 Saturation ABG Base Excess FiO2 Sodium 144 Potassium 4.1 D Chloride 112 H Carbon Dioxide 21.5 Anion Gap 11 BUN 33 H Creatinine 1.6 H Estim Creat Clear Calc 39.6 L eGFR 48 L BUN/Creatinine Ratio 21 H Glucose [address] Glu mg/dL 146 H Hemoglobin A1c 6.7 H Calculated Osmolality 294 Lactic Acid 2.0 Calcium 7.5 L Corrected Calcium 8.3 L Phosphorus 2.6 Magnesium 1.8 Total Bilirubin 0.2 L AST 12 ALT 9 L Alkaline Phosphatase 44 L D Lactate Dehydrogenase Troponin I B-Natriuretic Peptide Total Protein 5.9 Albumin 3.0 L D Globulin 2.9 Albumin/Globulin Ratio 1.0 L Triglycerides 347 H Cholesterol 147 LDL Cholesterol, Calc 45 HDL Cholesterol 33 L Cholesterol/HDL Ratio 4.5 Lipase Procalcitonin TSH 0.55 Ur Collection Type Urine Color Urine Clarity Urine pH Ur Specific [place] Urine Protein Urine Glucose (UA) Urine Ketones Urine Blood Urine Nitrite Urine Bilirubin Urine Urobilinogen (Auto) Ur Leukocyte Esterase Urine RBC Urine WBC Ur Squamous Epith Cells Urine Bacteria Hyaline Casts ABG Interpretation ABG results: 12/16/24 16:26 ABG pH 7.41 ABG pCO2 35 ABG pO2 82 L ABG HCO3 22 ABG O2 Saturation 98 ABG Base Excess -2 Quality Measures Quality Measures sepsis Current suspected stage: sepsis Possible source: pulmonary and skin/soft tissue Blood cultures ordered: yes Antibiotic ordered: Yes Assessment & Plan Assessment Current Active Medications: Generic Name Dose Route Start Last Admin Trade Name Freq PRN Reason Stop Dose Admin Acetaminophen 650 mg 12/16/24 14:13 12/16/24 15:09 Acetaminophen Supp 650 Mg Supp RI 01/15/25 14:12 650 mg Q8HR PRN Administration Fever > 100.4 Protocol Acetaminophen 650 mg 12/17/24 09:22 Acetaminophen 325 Mg Tablet PO 01/15/25 17:27 Q6H PRN Fever >100.3 Carbamazepine 200 mg 12/16/24 21:00 12/17/24 09:17 Carbamazepine 200 Mg Tablet PO 01/15/25 20:59 200 mg BID BRAYAN Administration Dextrose 25 ml 12/16/24 17:40 Dextrose 50%-Water Inj 50 Ml Syringe IV 01/15/25 17:39 Q15MIN PRN BG 50-70 responsive npo pt Dextrose 50 ml 12/16/24 17:40 Dextrose 50%-Water Inj 50 Ml Syringe IV 01/15/25 17:39 Q15MIN PRN BG <50 OR BG <70 & pt unresponsive Divalproex Sodium 500 mg 12/16/24 21:00 12/17/24 09:[address] 500 Mg Tablet.Dr PO 01/15/25 20:59 500 mg BID BRAYAN Administration Glucagon 1 mg 12/16/24 17:40 Glucagon Inj 1 Mg Vial IM Q15MIN PRN BG <70, and no IV access Heparin Sodium (Porcine) 5,000 unit 12/16/24 22:00 12/17/24 05:33 Heparin Sod Inj 5000 Unit/Ml Vial SC 12/30/24 21:59 5,000 unit Q8HR BRAYAN Administration Piperacillin/Tazobactam/Dextrose 3.375 gm in 50 mls @ 12.5 mls/hr 12/16/24 22:00 12/17/24 05:32 Zosyn IV 12/23/24 21:59 12.5 mls/hr Q8HR BRAYAN Administration Protocol Sodium Chloride 1,000 mls @ 75 mls/hr 12/16/24 17:30 12/17/24 07:43 Ns IV 01/15/25 17:29 75 mls/hr .[id number] BRAYAN Administration Doxycycline Hyclate 100 mg/ 100 mls @ 100 mls/hr 12/16/24 21:00 12/17/24 09:21 Sodium Chloride IV 12/23/24 20:59 100 mls/hr BID BRAYAN Administration Ceftriaxone Sodium/Dextrose 1 gm in 50 mls @ 100 mls/hr 12/16/24 17:38 12/17/24 09:16 Rocephin/D5w 1gm Iv Premix IV 12/23/24 17:37 100 mls/hr QDAY BRAYAN Administration Vancomycin/Sodium Chloride 200 mls @ 120 mls/hr 12/17/24 10:00 12/17/24 10:03 Vancomycin/Ns 1 Gm Ivpb IV 12/24/24 09:59 120 mls/hr QDAY@1000 BRAYAN Administration Protocol Insulin Human Lispro 0 unit 12/17/24 07:30 12/17/24 11:48 Insulin Lispro (Admelog) 1 Unit/0.01 Ml Unit SC 01/16/25 07:29 2 unit AC BRAYAN Administration Protocol Pharmacy Consult 1 each 12/16/24 14:20 Vancomycin Pharmacy To Dose 1 Each Each IV 01/15/25 14:19 QDAY PRN CONSULT Sennosides 1 tab 12/17/24 09:00 12/17/24 09:17 Senna Tablet PO 01/16/25 08:59 1 tab QDAY BRAYAN Administration Protocol Plan Mr. Vasquez is 64-year-old male with past medical history significant for hypertension, type 2 diabetes, hyperlipidemia and history of traumatic brain injury presented to the ED by ambulance from [facility] after being found somnolent and unconscious in his wheelchair as per chart reviewing. Pt is admitted to the hospital for management of sepsis secondary to CAP and GLENNA. #Sepsis secondary to #Community-acquired pneumonia - Patient complaining of a cough for couple days but denies any fever or chills - In the ED patient met 3/4 SIRS with endorgan damage of acute kidney injury, tachycardia, fever and leukocytosis (WBC 18.0) -Chest x-ray show significant left lung pneumonia -Pro-Donta could 0.51, Lactic acid 3.5 --> 2.0 In the ED patient received 1.8 L of fluids, Zosyn and vancomycin x 1 Plan: - Maintenance fluids ordered - Blood cultures and urine cultures pending - Started Rocephin and doxycycline 12/16- -supplemental oxygen ordered if patient becomes hypoxic - Tylenol as needed for fever #Normocytic anemia -Hgb 10.0, Hct 30.2, MCV 97 -There are no signs of active bleeding, Pt received significant amount of fluids since admission due to sepsis and GLENNA, this anemia is likely dilutional. -Will continue to monitor daily CBC #Acute kidney injury- improving - Patient's baseline creatinine is 1.0 and GFR above 60 - Creatinine on admission is 1.7, GFR 45 - Patient received 1.8 liters of fluid we will continue maintenance fluids - Monitor daily CMP - Avoid nephrotoxic and renally dose medication #Insulin-dependent type 2 diabetes - A1c 6.7 on 12/17/24 - Insulin sliding scale ordered - Accu-Cheks ACHS - Hypoglycemia protocol ordered #Primary hypertension #Hyperlipidemia #Hypertriglycerdemia - On admission patient's initial blood pressure was 150/78 and without any medications patient's blood pressure remained stable at 120/75 - Will continue to monitor blood pressure and withhold any hypertensive medications in the setting of sepsis for now -Lipid panel: Cholesterol 147, LDL 45, HDL 33, Triglycerides 347 - resumed home rosuvastatin -changed to low fat diet #History of seizure disorder - Resumed patient's home carbamazepine and Divalproex #Pulmonary nodule -CT of chest shows: 9 mm pulmonary nodule irregular margins right middle lobe -Pt will need outpatient follow up, and surveillance Health Maintenance Disposition: Med-tele for sepsis 2/2 CAP DVT Prophylaxis: Heparin 5000 units SC Q8 hrs GI Prophylaxis: not indicated Diet: carbohydrate consistent low Lines: Peripheral lines Code status: Full Assessment and plan discussed with my attending physician Dr. Joanna Cuellar (PGY-1)- Internal medicine resident Attending Provider Attestation/Addendum I attest that I was physically present for the evaluation, physical examination, lab and imaging review of the patient with the residents. I discussed the case with the residents and agree with the findings and plans of care as documented above. At bedside today, patient states he is feeling well, denies any new complaints. Has been able to tolerate his diet well, WBC is downtrending. Kidney function is also improving. Continues to be on IV antibiotics for sepsis secondary to pneumonia. Awaiting culture results. Continues to be on insulin regimen for diabetes. Noted to have triglyceride of 347, we will change his diet to low-fat diet. Continues to be on antiepileptics for seizure disorder. Noted to have pulmonary nodule on CTA of chest, patient will need outpatient follow-up. Zara Marshall MD
[2024-12-17] MEDS: ATORVASTATIN CALCIUM 20 MG TABLET 80 MG PO (21:57)
[2024-12-18] VITALS (11 sets, daily range): BP systolic 93–136; BP diastolic 57–87; PULSE 65–103; RESP 15–98; TEMP 36–36.7; O2SAT 94–100; BMI 25.6
[2024-12-18] MEDS: HEPARIN SOD INJ 5000 UNIT/ML VIAL SC ×3 (05:51→21:36)
[2024-12-18] MEDS: PIPER/TAZO 3.375 GM PREMIX 3.375 GM/50 ML BAG IV (05:51)
[2024-12-18 05:56] LABS: Basophils % (Auto) 0 % (0-2.5); Eosinophils # (Auto) 0.2 Thou/mm3 (0.0-0.5); Eosinophils % (Auto) 2 % (0-10); Hematocrit 27.9 % (41.0-53.0); Hemoglobin 9.5 g/dL (13.5-16.0); Immature Granulocytes % (Auto) 0 % (0-0); Immature Granulocytes Auto 0.03 Thou/mm3 (0.00-0.00); Lymphocytes # (Auto) 1.7 Thou/mm3 (1.0-4.8); Lymphocytes % (Auto) 23 % (10-50); Mean Corpuscular HGB Conc 34.1 g/dl (31.0-37.0); Mean Corpuscular Hemoglobin 31.8 pg (25.0-35.0); Mean Corpuscular Volume 93 fL (80-100); Monocytes # (Auto) 1.1 Thou/mm3 (0.0-0.8); Monocytes % (Auto) 14 % (0-12); Neutrophils # (Auto) 4.5 Thou/mm3 (1.8-7.7); Neutrophils % (Auto) 60 % (37-80); Nucleated Red Blood Cell % 0 /100 WBC (0); Platelet Count 183 Thou/mm3 (140-440); RDW Standard Deviation 47.8 fL (35.1-43.9); Red Blood Count 2.99 Miln/mm3 (4.50-5.90); White Blood Count 7.5 Thou/mm3 (3.8-10.6)
[2024-12-18 06:27] LABS: Alanine Aminotransferase < 7 U/L (10-49); Albumin/Globulin Ratio 1.2 (1.2-2.2); Alkaline Phosphatase 39 U/L (46-116); Anion Gap 11 (7-16); BUN/Creatinine Ratio 19 Ratio (12-20); Bilirubin,Total 0.2 mg/dL (0.3-1.2); Blood Urea Nitrogen 26 mg/dL (9-23); Calcium 8.2 mg/dL (8.3-10.6); Carbon Dioxide 20.9 mMol/L (20.0-31.0); Chloride 108 mMol/L (98-107); Creatinine (Component) 1.4 mg/dL (0.6-1.3); Estimated Creatinine Clearance 45.2 mL/min (>60); Globulin 2.6 gm/dL (2.3-3.5); Glucose 156 mg/dL (74-106); Osmolality,Calculated 287 (275-295); Phosphorous 3.4 mg/dL (2.4-5.1); Sodium 140 mMol/L (136-145); Total Protein 5.6 gm/dL (5.7-8.2); eGFR 56 See Note
[2024-12-18] MEDS: DIVALPROEX SOD DR 500 MG TABLET.DR PO ×2 (09:24→20:35)
[2024-12-18] MEDS: SENNA TABLET 1 TAB PO (09:24)
[2024-12-18] MEDS: carBAMazepine 200 MG TABLET PO ×2 (09:24→20:35)
[2024-12-18] MEDS: cefTRIAXone/D5w 1gm IV premix 1 GM/50 ML BAG IV (09:26)
[2024-12-18] MEDS: DOXYCYCLINE INJ 100 MG in SODIUM CHLORIDE 0.9% (POP) 100 ML IV (09:27)
[2024-12-18 09:29] LABS: Ferritin 148 ng/mL (10.5-307.3); Iron 20 mcg/dL (65-175); Percent Iron Saturation 8 % (20-55); Total Iron Binding Capacity 226 mcg/dL (250-425); Unsaturated Iron Binding 206 (225-295)
[2024-12-18] MEDS: INSULIN LISPRO (AdmeLOG) 1 UNIT/0.01 ML UNIT SC ×2 (12:02→16:56)
--- NOTE | 2024-12-18 15:27 | PC.RT ---
[facility] require prior [facility]. Per [facility], no he will not. [place] requested clinicals which were sent via [facility]. Pt currently receiving IV ABX for PNA, no DC today.
--- NOTE | 2024-12-18 16:52 | PD.RESPRO ---
Documentation for date of: 12/18/24 Subjective Subjective Interval history: No acute overnight events reported. Pt is seen and examined at bedside this morning. Pt does not have any complaints, denies shortness of breath or cough. Vitals are stable, pt is saturating above 95% on room air. BC's are negative at 24 hrs however due to sepsis on initial presentation will wait for 48 hours negative blood cultures. And continue to monitor the patient. Labs are stable. Exam Vital Signs Temp Pulse Resp BP Pulse Ox O2 Del Method 97.0 F 75 19 118/70 96 Room Air 12/18/24 16:00 12/18/24 16:00 12/18/24 16:00 12/18/24 16:00 12/18/24 16:00 12/18/24 16:00 Narrative Exam GENERAL: Pt is alert and only knows his name due to hx of traumatic brain injury . pleasant, cooperative, saturating on room air, Not in acute distress NEURO: no focal neurological deficits noted HEENT: Atraumatic, Normocephalic. mucous membranes moist. Eyes open, symmetrical, & clear HEART: Normal Heart Sounds LUNGS: Clear to auscultation with no wheezing or crackles. ABDOMEN: soft, non-distended, non-tender, bowel sounds heard, no guarding or rebound tenderness SKIN: bilateral erythematous skin with some abrasions noted around the knees, pt's legs are wrap in compression bandages EXTREMITIES: No edema, tenderness, able to move all 4 extremities, pedal pulses palpated Objective Labs 12/19/24 05:05 12/19/24 05:05 Labs: Laboratory Results - last 24 hr 12/18/24 05:00 WBC 7.5 D RBC 2.99 L Hgb 9.5 L Hct 27.9 L MCV 93 MCH 31.8 MCHC 34.1 RDW Std Deviation 47.8 H Plt Count 183 Neut % (Auto) 60 Lymph % (Auto) 23 [place] % (Auto) 14 H Eos % (Auto) 2 Baso % (Auto) 0 Neut # (Auto) 4.5 Lymph # (Auto) 1.7 [place] # (Auto) 1.1 H Eos # (Auto) 0.2 Baso # (Auto) 0.0 Immature Gran # (Auto) 0.03 H Absolute Nucleated RBC 0.00 Immature Gran % 0 Nucleated RBC % 0 Sodium 140 Potassium 4.0 Chloride 108 H Carbon Dioxide 20.9 Anion Gap 11 BUN 26 H Creatinine 1.4 H Estim Creat Clear Calc 45.2 L eGFR 56 L BUN/Creatinine Ratio 19 Glucose 156 H Calculated Osmolality 287 Calcium 8.2 L Corrected Calcium 9.0 Phosphorus 3.4 Magnesium 2.0 Iron 20 L TIBC 226 L Iron Saturation 8 L Unsat Iron Binding 206 L Ferritin 148 Total Bilirubin 0.2 L ALT < 7 L Alkaline Phosphatase 39 L Total Protein 5.6 L Albumin 3.0 L Globulin 2.6 Albumin/Globulin Ratio 1.2 ABG Interpretation ABG results: 12/16/24 16:26 ABG pH 7.41 ABG pCO2 35 ABG pO2 82 L ABG HCO3 22 ABG O2 Saturation 98 ABG Base Excess -2 Quality Measures Quality Measures sepsis Current suspected stage: sepsis Possible source: pulmonary and skin/soft tissue Blood cultures ordered: yes Antibiotic ordered: Yes Assessment & Plan Assessment Current Active Medications: Generic Name Dose Route Start Last Admin Trade Name Freq PRN Reason Stop Dose Admin Acetaminophen 650 mg 12/16/24 14:13 12/16/24 15:09 Acetaminophen Supp 650 Mg Supp [place] 01/15/25 14:12 650 mg Q8HR PRN Administration Fever > 100.4 Protocol Acetaminophen 650 mg 12/17/24 09:22 Acetaminophen 325 Mg Tablet PO 01/15/25 17:27 Q6H PRN Fever >100.3 Atorvastatin Calcium 80 mg 12/17/24 21:00 12/17/24 21:57 Atorvastatin Calcium 20 Mg Tablet PO 01/16/25 20:59 80 mg HS BRAYAN Administration Protocol Carbamazepine 200 mg 12/16/24 21:00 12/18/24 09:24 Carbamazepine 200 Mg Tablet PO 01/15/25 20:59 200 mg BID BRAYAN Administration Dextrose 25 ml 12/16/24 17:40 Dextrose 50%-Water Inj 50 Ml Syringe IV 01/15/25 17:39 Q15MIN PRN BG 50-70 responsive npo pt Dextrose 50 ml 12/16/24 17:40 Dextrose 50%-Water Inj 50 Ml Syringe IV 01/15/25 17:39 Q15MIN PRN BG <50 OR BG <70 & pt unresponsive Divalproex Sodium 500 mg 12/16/24 21:00 12/18/24 09:[address] 500 Mg Tablet.Dr PO 01/15/25 20:59 500 mg BID BRAYAN Administration Doxycycline Hyclate 100 mg 12/18/24 21:00 Doxycycline 100 Mg Tablet PO 12/23/24 20:59 BID BRAYAN Protocol Glucagon 1 mg 12/16/24 17:40 Glucagon Inj 1 Mg Vial IM Q15MIN PRN BG <70, and no IV access Heparin Sodium (Porcine) 5,000 unit 12/16/24 22:00 12/18/24 14:25 Heparin Sod Inj 5000 Unit/Ml Vial SC 12/30/24 21:59 5,000 unit Q8HR BRAYAN Administration Ceftriaxone Sodium/Dextrose 1 gm in 50 mls @ 100 mls/hr 12/16/24 17:38 12/18/24 09:26 Rocephin/D5w 1gm Iv Premix IV 12/23/24 17:37 100 mls/hr QDAY BRAYAN Administration Insulin Human Lispro 0 unit 12/17/24 07:30 12/18/24 12:02 Insulin Lispro (Admelog) 1 Unit/0.01 Ml Unit SC 01/16/25 07:29 5 unit AC BRAYAN Administration Protocol Sennosides 1 tab 12/17/24 09:00 12/18/24 09:24 Senna Tablet PO 01/16/25 08:59 1 tab QDAY BRAYAN Administration Protocol Plan Mr. Vasquez is 64-year-old male with past medical history significant for hypertension, type 2 diabetes, hyperlipidemia and history of traumatic brain injury presented to the ED by ambulance from [facility] after being found somnolent and unconscious in his wheelchair as per chart reviewing. Pt is admitted to the hospital for management of sepsis secondary to CAP and GLENNA. #Sepsis secondary to #Community-acquired pneumonia - Patient complaining of a cough for couple days but denies any fever or chills - In the ED patient met 3/4 SIRS with endorgan damage of acute kidney injury, tachycardia, fever and leukocytosis (WBC 18.0) -Chest x-ray show significant left lung pneumonia -Pro-Donta could 0.51, Lactic acid 3.5 --> 2.0 In the ED patient received 1.8 L of fluids, Zosyn and vancomycin x 1 Plan: - Maintenance fluids given, currently off of fluids since pt is tolerative oral diet - Blood cultures no growth at 24 hrs -Urine cultures pending - Started Rocephin and doxycycline 12/16- -supplemental oxygen ordered if patient becomes hypoxic - Tylenol as needed for fever #Normocytic anemia #Iron deficiency anemia -Hgb 10.0, Hct 30.2, MCV 97 -Iron panel: Iron 28, TIBC 226, iron saturation 8, unsaturated iron binding 206, ferritin 148 -Patient takes ferrous sulfate 325 daily at home -Continue ferrous sulfate 325 QOD -There are no signs of active bleeding, Pt received significant amount of fluids since admission due to sepsis and GLENNA, this anemia is likely dilutional. -Will continue to monitor daily CBC #Acute kidney injury- improving - Patient's baseline creatinine is 1.0 and GFR above 60 - Creatinine on admission is 1.7, GFR 45 - Patient received 1.8 liters of fluid we will continue maintenance fluids - Monitor daily CMP - Avoid nephrotoxic and renally dose medication #Insulin-dependent type 2 diabetes - A1c 6.7 on 12/17/24 - Insulin sliding scale ordered - Accu-Cheks ACHS - Hypoglycemia protocol ordered #Primary hypertension #Hyperlipidemia #Hypertriglycerdemia - On admission patient's initial blood pressure was 150/78 and without any medications patient's blood pressure remained stable at 120/75 - Will continue to monitor blood pressure and withhold any hypertensive medications in the setting of sepsis for now -Lipid panel: Cholesterol 147, LDL 45, HDL 33, Triglycerides 347 - resumed home rosuvastatin -changed to low fat diet #History of seizure disorder - Resumed patient's home carbamazepine and Divalproex #Pulmonary nodule -CT of chest shows: 9 mm pulmonary nodule irregular margins right middle lobe -Pt will need outpatient follow up, and surveillance Health Maintenance Disposition: Med-tele for sepsis 2/2 CAP DVT Prophylaxis: Heparin 5000 units SC Q8 hrs GI Prophylaxis: not indicated Diet: carbohydrate consistent low Lines: Peripheral lines Code status: Full Assessment and plan discussed with my attending physician Dr. Joanna Cuellar (PGY-1)- Internal medicine resident Attending Provider Attestation/Addendum I attest that I was physically present for the evaluation, physical examination, lab and imaging review of the patient with the residents. I discussed the case with the residents and agree with the findings and plans of care as documented above. At bedside today, patient states she is feeling well and denies any new complaints. Has been saturating well on room air. Continues to be on Rocephin and doxycycline. Kidney function have been improving. Continues to be on insulin regimen for diabetes. Awaiting culture results. Zara Marshall MD
[2024-12-18] MEDS: FERROUS SULF 325 MG TABLET PO (17:44)
[2024-12-18] MEDS: ATORVASTATIN CALCIUM 20 MG TABLET 80 MG PO (20:34)
[2024-12-18] MEDS: DOXYCYCLINE 100 MG TABLET PO (20:35)
[2024-12-19] VITALS (8 sets, daily range): BP systolic 114–142; BP diastolic 57–80; PULSE 74–88; RESP 15–99; TEMP 36.1–37.2; O2SAT 96–98
[2024-12-19] MEDS: HEPARIN SOD INJ 5000 UNIT/ML VIAL SC (05:13)
[2024-12-19 06:00] LABS: Basophils % (Auto) 0 % (0-2.5); Eosinophils # (Auto) 0.2 Thou/mm3 (0.0-0.5); Eosinophils % (Auto) 2 % (0-10); Hematocrit 28.1 % (41.0-53.0); Hemoglobin 9.4 g/dL (13.5-16.0); Immature Granulocytes % (Auto) 0 % (0-0); Immature Granulocytes Auto 0.02 Thou/mm3 (0.00-0.00); Lymphocytes % (Auto) 28 % (10-50); Mean Corpuscular HGB Conc 33.5 g/dl (31.0-37.0); Mean Corpuscular Hemoglobin 31.2 pg (25.0-35.0); Mean Corpuscular Volume 93 fL (80-100); Monocytes # (Auto) 1.2 Thou/mm3 (0.0-0.8); Monocytes % (Auto) 16 % (0-12); Neutrophils # (Auto) 3.7 Thou/mm3 (1.8-7.7); Neutrophils % (Auto) 53 % (37-80); Nucleated Red Blood Cell % 0 /100 WBC (0); Platelet Count 203 Thou/mm3 (140-440); Red Blood Count 3.01 Miln/mm3 (4.50-5.90); White Blood Count 7.1 Thou/mm3 (3.8-10.6)
[2024-12-19] MEDS: INSULIN LISPRO (AdmeLOG) 1 UNIT/0.01 ML UNIT SC ×2 (07:23→11:38)
[2024-12-19 07:33] LABS: Alanine Aminotransferase 12 U/L (10-49); Albumin, Serum 3.1 gm/dL (3.4-4.8); Alkaline Phosphatase 42 U/L (46-116); Anion Gap 11 (7-16); BUN/Creatinine Ratio 17 Ratio (12-20); Bilirubin,Total 0.2 mg/dL (0.3-1.2); Blood Urea Nitrogen 22 mg/dL (9-23); Calcium 8.4 mg/dL (8.3-10.6); Calcium (Corrected) 9.1 mg/dL (8.5-10.1); Carbon Dioxide 23.8 mMol/L (20.0-31.0); Chloride 111 mMol/L (98-107); Creatinine (Component) 1.3 mg/dL (0.6-1.3); Estimated Creatinine Clearance 48.7 mL/min (>60); Glucose 163 mg/dL (74-106); Osmolality,Calculated 297 (275-295); Phosphorous 3.5 mg/dL (2.4-5.1); Potassium 4.5 mMol/L (3.4-5.1); Sodium 146 mMol/L (136-145); Total Protein 6.1 gm/dL (5.7-8.2); eGFR > 60 See Note
[2024-12-19] MEDS: DIVALPROEX SOD DR 500 MG TABLET.DR PO (08:44)
[2024-12-19] MEDS: DOXYCYCLINE 100 MG TABLET PO (08:44)
[2024-12-19] MEDS: carBAMazepine 200 MG TABLET PO (08:44)
[2024-12-19] MEDS: cefTRIAXone/D5w 1gm IV premix 1 GM/50 ML BAG IV (08:44)
[2024-12-19] MEDS: SENNA TABLET 1 TAB PO (08:44)
[2024-12-19 08:51] LABS: Vancomycin,Trough 5.7 mcg/mL (5.0-10.0)
--- NOTE | 2024-12-19 10:54 | PC.SS ---
Pt is ready to DC back to [facility]. SS spoke to CARLITO Love set with [employer] for [id number]. RN, Brody and Paris made aware
[2024-12-19 11:42] LABS: Cocci Serology, IgM Negative (Negative)
--- NOTE | 2024-12-19 12:09 | PC.SS ---
SS met with pt at bedside to discuss DC plan back to [facility], pt eager to DC back today. SS also spoke to Kate who requested updated clinicals which were sent via [facility]. Pt pending transport with [facility] at [address]
--- NOTE | 2024-12-19 15:51 | PD.RESDS ---
Planned Discharge Date 12/19/24 DS: Providers Provider Date of admission: 12/16/24 17:28 Primary care physician: Eloy Don MD ([facility]) Admitting Provider: Zara Marshall MD Attending Provider on Admission: Zara Marshall MD Consults: 12/16/24 17:48 Referral Wound Care Routine Comment: 12/17/24 08:34 Referral Physical Therapy Stat Comment: Physician Instructions: Attending Provider on DC: Alyx Garcia MD Discharging Provider: Alyx Garcia MD DS: Diagnosis Problem List Completed Was Problem List Reviewed/Reconciled?: Yes Hospital Course Hospital Course Hospital course: 64-year-old male with past medical history significant for hypertension, type 2 diabetes, hyperlipidemia and history of traumatic brain injury presented to the ED by ambulance from [facility] after being found somnolent and unconscious in his wheelchair. Patient had then regained consciousness and was alert at his baseline upon arrival to the ED. In the ED initial vitals were 150/78, pulse was 136, temperature 102.7, patient was COVID, influenza A and B negative.Patient was saturating on room air did not require any supplemental oxygen. Labs were significant for WBC 18.0, hemoglobin 12.6, hematocrit 36.4, BUN 38, creatinine 1.7, GFR 45, glucose 168, phosphorus 1.2 Lactic dehydrogenase 148, lipase 78, Pro-Donta could 0.51. Lactic acid 3.5 --> 2.0. Urinalysis not significant. EKG showed sinus tachycardia with heart rate of 143 , QTc 390. Chest x-ray show significant left lung pneumonia. Patient was admitted for management of sepsis secondaryto pneumonia, blood cultures negative at 48 hrs, afebrile, white count normalized, patient safe and stable for DC. He received ceftriaxone 3 days while in the hosital, prescribed cefuroxime 5 days upon dc. #Sepsis secondary to #Community-acquired pneumonia #Normocytic anemia #Iron deficiency anemia #Acute kidney injury- improving #Insulin-dependent type 2 diabetes #Primary hypertension #Hyperlipidemia #Hypertriglycerdemia #History of seizure disorder #Pulmonary nodule Patient's care discussed with attending physician, Dr Joanna Garcia MD PGY3 Time Spent with Patient Time attestation: Total time spent providing and/or coordinating discharge services: Time spent: Greater than 30 minutes Exam Vital Signs Temp Pulse Resp BP Pulse Ox O2 Del Method 98.9 F 85 16 123/67 98 Room Air 12/19/24 11:28 12/19/24 12:00 12/19/24 11:28 12/19/24 11:28 12/19/24 11:28 12/19/24 04:00 Discharge Plan Plan Patient Disposition: Xfer [facility] Fac (SNF) Disposition Comment: [facility] Care Plan Goals: -Continue takin antibiotics for 5 days -Recommend renal panel in 1 week -Follow up cocci results -Recommend 3 month follow-up CT chest without contrast for pulmonary nodule Prescriptions/Referrals Prescriptions/Med Rec: New cefuroxime axetil 500 mg tablet 500 mg PO BID 5 Days Qty: 10 0RF Continued carbamazepine [Tegretol] 200 MG tablet 200 mg PO BID Qty: 0 magnesium hydroxide [Milk of Magnesia] 30 ML/CUP suspension 30 ml PO HSPRN PRN (Reason: CONSTIPATION) Qty: 0 divalproex [Depakote ER] 500 MG tablet extended release 24 hr 1,000 mg PO QDAY Qty: 0 niacin 500 MG tablet 250 mg PO BID Qty: 0 aspirin 81 MG tablet,chewable 81 mg PO QDAY Qty: 0 lisinopril 5 MG tablet 2.5 mg PO QDAY Qty: 0 multivitamin,yr-wtmj-In-FA-min Tablet 1 tab PO DAILY insulin glargine 100 unit/mL Cartridge 45 unit SUBCUT BID bisacodyl [Dulcolax (bisacodyl)] 10 mg Suppository 10 mg [place] QDAY PRN (Reason: Constipation) metformin [Glucophage] 1,000 mg Tablet 1,000 mg PO BID melatonin 3 mg Capsule 3 mg PO HS Glucagon Emergency Kit (human) 1 mg recon soln See Rx Instructions .ROUTE .COMPLEX Rx Instructions: 1 mg IM every 15 minutes as needed for blood sugar less than 60; acetaminophen 325 mg capsule 325 mg PO Q6H PRN (Reason: fever or pain) rosuvastatin 20 mg tablet 20 mg PO ONCE HS epinephrine 0.3 mg/0.3 mL auto-injector 0.3 ml SUBCUT Q12HR PRN (Reason: hypersensitivity reaction) ferrous sulfate 325 mg (65 mg iron) tablet 325 mg PO QDAY Held furosemide [Lasix] 20 MG tablet 20 mg PO QDAY Qty: 0 Hold Instructions: Resume on 12/19/24. unable to verify glimepiride 1 mg tablet 1 mg PO QDAY Hold Instructions: Resume on 12/19/24. Unable to verify Referrals: Arian([facility])Eloy MD [Primary Care Provider] - Patient/Caregiver Discharge Instructions Education Materials: Preventing Pneumonia, Sepsis Print Language: Dominican Stand Alone Forms: [employer]elli Award Info., Patient Portal Info Letter Discharge Order Discharge Orders: Discharge (Routine); Ordered 12/19/24 Ordered By: Alyx Garcia Quality Discharge Quality Measures VTE prophylaxis MD Attestestation MD Attestation I attest that I was physically present for the evaluation, physical examination, lab and imaging review of the patient with the residents. I discussed the case with the residents and agree with the findings and plans of care as documented above. Zara Marshall MD
[2024-12-20 12:13] LABS: Cocci Serology, IgG Negative (Negative)
== END 2024-12-19 13:42 | disposition skilled nursing facility (03) | DRG 720 ==
LOC: SERX 16:30 → SERHOLD 18:01 → S3SX 19:12
PROVIDERS: Physician Assistant; Student in an Organized Health Care Education/Training Program; Admitting Provider Student in an Organized Health Care Education/Training Program; Emergency Provider Emergency Medicine; PCP Hospitalist; Visit Provider Student in an Organized Health Care Education/Training Program
DX: A41.9 Sepsis, unspecified organism (principal); E78.5 Hyperlipidemia, unspecified; I10 Essential (primary) hypertension; F03.93 Unspecified dementia, unspecified severity, with mood disturbance; F17.200 Nicotine dependence, unspecified, uncomplicated; J18.9 Pneumonia, unspecified organism; N17.9 Acute kidney failure, unspecified; F31.9 Bipolar disorder, unspecified; E11.9 Type 2 diabetes mellitus without complications; E11.65 Type 2 diabetes mellitus with hyperglycemia; L03.115 Cellulitis of right lower limb; G40.909 Epilepsy, unspecified, not intractable, without status epilepticus; D50.9 Iron deficiency anemia, unspecified; Z87.820 Personal history of traumatic brain injury; Z79.4 Long term (current) use of insulin; Z79.84 Long term (current) use of oral hypoglycemic drugs; Z79.899 Other long term (current) drug therapy
CPT/HCPCS: 36415; 36600; 71045; 71250; 80053; 80061; 80202; 81001; 82728; 82803; 83036; 83540; 83550; 83605; 83615; 83690; 83735; 83880; 84100; 84145; 84443; 84484; 85025; 85610; 85730; 86331; 86635; 87040; 87081; 87086; 87400; 87811; 93005; 93225; 96361; 96365; 96366; 96367; 97162; 99285; J0696; J1644; J1815; J2543; J3370; J3490; J7030; A9270